=== PATIENT | female | born 2005 | race Caucasian/White ===

== ENCOUNTER 2024-02-04 19:00 | Inpatient (IN) | payer OTHER ==
[2024-02-04 20:30] VITALS: BMI 32.5
[2024-02-04] MEDS ORDERED: Ondansetron PF 4 MG/2 ML Vial IVP PRN (20:53)
[2024-02-04] MEDS ORDERED: Lidocaine 1% (PF) 30 ML VIAL SC PRN (20:53)
[2024-02-04] MEDS ORDERED: Promethazine HCl 25 MG/ML VIAL IM PRN (20:53)
[2024-02-04] MEDS ORDERED: hydrALAZINE 20 MG/ML VIAL SLOW IVP PRN (20:53)
[2024-02-04] MEDS ORDERED: Penicillin G Potassium 5 MILL.UNITS in Sodium Chloride 0.9% 100 ML IVPB SCH (21:00)
[2024-02-04] MEDS ORDERED: Oxytocin 30 units/NS 500 ML 500 ML IV SCH ×2 (21:00)
[2024-02-04 21:36] LABS: Hematocrit 31.1 % (34.9-44.5); Hemoglobin 10.8 g/dL (12.0-15.5); Mean Corpuscular HGB CONC 34.7 g/dL (32.0-36.0); Mean Corpuscular Hemoglobin 27.8 pg (27.0-33.0); Mean Corpuscular Volume 80.2 fL (81.6-98.3); Mean Platelet Volume 11.8 fL (7.4-10.4); Platelet Count 258 10x3/uL (150-450); RBC Distribution Width 16.1 % (11.5-14.5); Red Blood Cell (RBC) Count 3.88 10x6/uL (3.90-5.03)
[2024-02-04] MEDS: Misoprostol 100 MCG TAB VAG SCH (21:48)
[2024-02-04 22:02] LABS: HBsAg Index 0.48 S/CO (0-0.99); Hep B Surf Ag - L&D Non-Reactive S/CO (NonReactive); Syphilis Antibody Nonreactive (Nonreactive); Syphilis Antibody Index 0.06 S/CO (<1.00 Non-Reactive)
[2024-02-04 23:29] LABS: Creatinine, Urine 23.25 mg/dL (47-110); Protein, Urine Random Quant Less than 10 mg/dL (1-14)
[2024-02-05] MEDS: Misoprostol 100 MCG TAB VAG SCH (02:16)
[2024-02-05] MEDS: Famotidine/PF 20 mg/2ml Vial SLOW IVP SCH (02:39)
[2024-02-05] MEDS ORDERED: Fentanyl 100 MCG/2 ML VIAL SLOW IVP PRN (02:40)
[2024-02-05] MEDS: fentaNYL 50 mcg/mL 1 mL Vial SLOW IVP PRN (02:57)
[2024-02-05] MEDS: fentaNYL/Ropivacaine Epidural 100 ML ONE (04:15)
[2024-02-05] MEDS: Penicillin G 2.5 MILL.units 2.5 MILL.UNITS in Premix 1 BAG IVPB SCH ×2 (04:32→12:28)
[2024-02-05] MEDS ORDERED: Moisturizing Cream (Eucerin) 113 GM JAR TOP PRN ×2 (04:34→19:15)
[2024-02-05] MEDS ORDERED: diphenhydrAMINE 50 MG/ML VIAL IVP PRN ×2 (04:34→19:15)
[2024-02-05] MEDS ORDERED: ePHEDrine Sulfate 50 MG/10 ML VIAL SLOW IVP PRN (04:34)
[2024-02-05] MEDS ORDERED: Acetaminophen 325 MG TAB PO PRN (04:34)
[2024-02-05] MEDS ORDERED: Ondansetron PF 4 MG/2 ML Vial IVP PRN ×3 (04:34→19:15)
[2024-02-05] MEDS ORDERED: Naloxone HCl 0.4 mg/ml Vial IVP PRN ×4 (04:34→19:15)
[2024-02-05] MEDS ORDERED: Promethazine HCl 25 MG/ML VIAL IM PRN ×2 (04:34→19:15)
[2024-02-05] MEDS ORDERED: Lactated Ringer's 500 ML IV PRN (04:34)
[2024-02-05] MEDS ORDERED: Communication Order-Pharmacy FS SCH ×2 (04:45→19:15)
[2024-02-05] MEDS: Lactated Ringer's 1,000 ML IV SCH (07:12)
[2024-02-05] MEDS: Penicillin G Potassium 5 MILL.UNITS in Sodium Chloride 0.9% 100 ML IVPB SCH (08:34)
[2024-02-05] MEDS: Oxytocin 30 units/NS 500 ML 500 ML IV SCH (14:19)
[2024-02-05] MEDS: fentaNYL 2 mcg/Ropivacaine 0.2% Epidural 100 ML CADD EPIDURAL SCH (15:35)
[2024-02-05] MEDS ORDERED: Bicitra 30 ML UDCUP PO PRN (17:09)
[2024-02-05] MEDS ORDERED: CEFAZOLIN 2 GM in Sodium Chloride 0.9% 100 ML IVPB SCH (17:15)
[2024-02-05] MEDS ORDERED: Azithromycin 500 MG in Sodium Chloride 0.9% 250 ML 250 ML IVPB SCH (17:15)
[2024-02-05] MEDS: Azithromycin 500 MG VIAL ONE (17:18)
[2024-02-05] MEDS: CEFAZOLIN 2 GM VIAL ONE (17:18)
[2024-02-05] MEDS ORDERED: hydrALAZINE 20 MG/ML VIAL SLOW IVP PRN (18:27)
[2024-02-05] MEDS ORDERED: Naloxone HCl 0.4 mg/ml Vial IV PRN (19:15)
[2024-02-05] MEDS ORDERED: fentaNYL 50 mcg/mL 1 mL Vial SLOW IVP PRN (19:15)
[2024-02-05] MEDS ORDERED: Meperidine HCl/PF 25 MG (1 mL) VIAL SLOW IVP PRN (19:15)
[2024-02-05] MEDS ORDERED: HYDROmorphone 0.5 MG/0.5 ML SYRINGE SLOW IVP PRN (19:15)
[2024-02-05] MEDS: Tranexamic Acid 1,000 MG/10 ML VIAL ONE (20:56)
[2024-02-05] MEDS: PHENYLEPHRINE-NS 100 MCG/ML 10 ML SYRINGE ONE (20:56)
[2024-02-05] MEDS: Methylergonovine 0.2 MG/ML VIAL ONE (20:56)
[2024-02-05] MEDS: Dexmedetomidine 200 MCG/2 ML VIAL ONE (20:56)
[2024-02-05] MEDS: Lidocaine 2% MPF 10 ML AMP (For Epidural Use) ONE (20:56)
[2024-02-05] MEDS: Misoprostol 200 MCG TAB ONE (20:56)
[2024-02-05] MEDS: Carboprost 250 MCG/ML AMP ONE (20:56)
[2024-02-05] MEDS: Dexamethasone 4 mg/ml Vial ONE (20:57)
[2024-02-05] MEDS: Ketorolac Tromethamine 30 MG (1 mL) VIAL ONE (20:57)
[2024-02-05] MEDS: Ondansetron PF 4 MG/2 ML Vial ONE (20:57)
[2024-02-05] MEDS: Morphine PF 10 MG/10 ML VIAL ONE (20:58)
[2024-02-05] MEDS: fentaNYL 50 mcg/mL 1 mL Vial ONE (20:58)
[2024-02-06] MEDS ORDERED: Ketorolac Tromethamine 30 MG (1 mL) VIAL IVP PRN
[2024-02-06] MEDS: Ferrous Sulfate 325 MG TAB PO SCH (00:29)
[2024-02-06] MEDS: Ketorolac Tromethamine 30 MG (1 mL) VIAL IVP PRN (01:20)
[2024-02-06] MEDS: Boostrix 0.5 ML (Tdap) VIAL (>/=7 yrs of age) IM ONE (01:21)
[2024-02-06 03:38] LABS: #Basophils 0.03 10x3/uL (0.0-0.2); #Eosinphils 0.02 10x3/uL (0.0-0.5); #Monocytes 0.58 10x3/uL (0.0-1.1); %Basophils 0.2 % (0.0-2.0); %Eosinophils 0.1 % (0.0-6.0); %Lymphocytes 6.1 % (18.0-47.0); %Monocytes 3.4 % (0.0-10.0); %Neutrophils 89.7 % (40.0-75.0); Hematocrit 28.3 % (34.9-44.5); Hemoglobin 9.2 g/dL (12.0-15.5); Mean Corpuscular HGB CONC 32.5 g/dL (32.0-36.0); Mean Corpuscular Hemoglobin 26.7 pg (27.0-33.0); Mean Platelet Volume 11.5 fL (7.4-10.4); Platelet Count 227 10x3/uL (150-450); RBC Distribution Width 16.3 % (11.5-14.5); Red Blood Cell (RBC) Count 3.45 10x6/uL (3.90-5.03); White Blood Cell (WBC) Count 17.1 10x3/uL (3.5-10.5)
[2024-02-06] MEDS ORDERED: Ibuprofen 800 MG TAB PO SCH (06:00)
[2024-02-06] MEDS: Famotidine/PF 20 mg/2ml Vial SLOW IVP SCH (07:13)
[2024-02-06] MEDS: Simethicone Chewable 80 MG TAB PO PRN (08:56)
[2024-02-06] MEDS: Prenatal Vitamin 1 TAB PO SCH (08:56)
[2024-02-06] MEDS ORDERED: Ibuprofen 800 MG TAB PO PRN (09:18)
[2024-02-06] MEDS: Ibuprofen 800 MG TAB PO SCH ×2 (10:12→14:34)
[2024-02-06] MEDS: HYDROcodone/Acetaminophen 5/325 mg Tablet PO PRN (13:30)
[2024-02-06] MEDS ORDERED: Bisacodyl 5 MG TAB PO PRN (19:39)
[2024-02-06] MEDS: Docusate 100 MG CAP PO PRN (21:53)
[2024-02-07 09:08] VITALS: BP 113/65; TEMP 98
== END 2024-02-07 13:10 | disposition home or self-care (01) | DRG 788 ==
LOC: CSHLD 20:02 → CSHPP 02-05 21:30
PROVIDERS: ADMIT Family Medicine; ATTEND Family Medicine
PROC: 10D00Z1 Extraction of Products of Conception, Low, Open Approach (ICD-10-PCS; principal; 2024-02-05)
PROC: 10H07YZ Insertion of Other Device into Products of Conception, Via Natural or Artificial Opening (ICD-10-PCS; 2024-02-05)
DX: O99.824 Streptococcus B carrier state complicating childbirth (principal); O48.0 Post-term pregnancy; O62.1 Secondary uterine inertia; Z3A.41 41 weeks gestation of pregnancy; Z37.0 Single live birth
CPT/HCPCS: 36415; 51702; 82570; 84156; 85025; 85027; 86780; 86850; 86900; 86901; 87340; J0456; J1100; J1885; J2274; J2405; J2540; J2590; J3010; J3490; J7120; S0028